=== PATIENT | female | born 1965 | race Caucasian/White ===

== ENCOUNTER 2018-02-16 13:37 | Outpatient (CLI) | payer BC ==
--- NOTE | 2018-02-16 15:44 | MMO ---
BILATERAL MAMMOGRAMS: DATE: 02/16/18 HISTORY: Screening mammography. COMPARISON: Multiple exams back to 01/04/11. FINDINGS: Heterogeneously dense fibroglandular tissue. No dominant mass or suspicious calcifications. Multiple partially obscured oval and lobular isodense nodules of varying size are stable and may represent int ramammary lymph nodes. No new dominant mass or suspicious calcifications. The study was evaluated with the assistance of computer-aided detection. IMPRESSION: BIRADS 2: Benign Finding(s) Suggest routine follow-up. POS: [facility]
== END 2018-02-16 13:38 | disposition home or self-care (01) ==
LOC: SCSMAMMO 13:37
PROVIDERS: ATTEND Family Medicine
DX: Z12.31 Encounter for screening mammogram for malignant neoplasm of breast (principal)
CPT/HCPCS: 77067

== ENCOUNTER 2019-03-02 20:30 | Outpatient (CLI) | payer BC | END 2019-03-02 20:31 | disposition home or self-care (01) | LOC: SLEEPLAB 20:30 | PROVIDERS: ATTEND Family Medicine | DX: G47.33 Obstructive sleep apnea (adult) (pediatric) (principal); R06.83 Snoring; R53.83 Other fatigue | CPT/HCPCS: 95811 ==